=== PATIENT | female | born 2000 | race American Indian/Alaskan Native ===

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

== ENCOUNTER 2023-01-09 23:22 | Emergency (ER) | payer OTHER ==
[~2023-01-09] VITALS: Ht 157.5 cm; Wt 62.0 kg
[~2023-01-09 23:22] MED LIST changes: +MAALOX ADVANCE1 EACH PO; +ONDANSETRON ODT4 MG PO
[2023-01-09] MEDS ORDERED: DOXYCYCLINE HY100 MG PO (23:53)
[2023-01-09] MEDS ORDERED: PREDNISONE20 MG PO (23:53)
[2023-01-09] MEDS ORDERED: BENADRYL ALLERG25 MG PO (23:53)
[2023-01-10 00:11] VITALS: BP 122/72
== END 2023-01-10 00:11 | disposition home or self-care (01) ==
LOC: ED 23:22
DX: S40.861A Insect bite (nonvenomous) of right upper arm, initial encounter (principal); S40.862A Insect bite (nonvenomous) of left upper arm, initial encounter; S90.561A Insect bite (nonvenomous), right ankle, initial encounter; W57.XXXA Bitten or stung by nonvenomous insect and other nonvenomous arthropods, initial encounter; Z88.1 Allergy status to other antibiotic agents
CPT/HCPCS: J7512; Q0163

== ENCOUNTER 2024-05-12 07:31 | Emergency (ER) | payer OTHER ==
[~2024-05-12] VITALS: Ht 157.5 cm; Wt 67.4 kg
[~2024-05-12 07:31] MED LIST changes: +BENADRYL ALLERG25 MG PO; +DOXYCYCLINE HY100 MG PO
--- OUTSIDE RECORDS SUMMARY | 2024-05-12 07:37 | XMS ---
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 - Patient eloped before treatment completed. - Patient with suicidal and/or homicidal ideations eloped. Details: Patient LWBS Elopement at [facility] 12/06/2022 15:14 - Patient eloped with IV in place. - Patient eloped before treatment completed. - Patient with suicidal and/or homicidal ideations eloped. Details: Patient LWBS CRITERIA MET - Group Notification CARE PROVIDERS -[facility] Dentist: Patternmaker Wood [facility] PHONE: [phone] -Siomara- Dentist: Patternmaker Wood [facility] PHONE: [phone] [facility] PHONE: [phone] Loyda has no Care Guidelines for this patient. Ana Cristina VISIT COUNT (12 MO.) 3 [facility] ([facility] TOTAL 4 NOTE: Visits indicate total known visits. ED/UCC VISIT TRACKING (12 MO.) 05/12/2024 07:31 [facility] [place] TYPE: Emergency COMPLAINT: - SKIN PROBLEM 12/12/2023 00:21 [facility] [place] TYPE: Emergency COMPLAINT: - SKIN PROBLEM DIAGNOSES: - Allergy status to other antibiotic agents - Allergy status to penicillin - Depression, unspecified - Diseases of lips - Other mcc (current) drug therapy [facility]12[facility]2023 17:[facility] Emergency DIAGNOSES: - Other muscle spasm - neck pain 07/12/2023 13:39 [facility] [place] TYPE: Emergency COMPLAINT: - NECK PAIN INPATIENT VISIT TRACKING (12 MO.) No inpatient visits to display in this time frame [id number]
[2024-05-12] MEDS ORDERED: DOXYCYCLINE HY100 MG PO (07:53)
[2024-05-12 08:37] VITALS: BP 127/71
== END 2024-05-12 08:00 | disposition home or self-care (01) ==
LOC: ED 07:31
DX: K13.0 Diseases of lips (principal); Z88.0 Allergy status to penicillin; Z88.1 Allergy status to other antibiotic agents; Z88.7 Allergy status to serum and vaccine
CPT/HCPCS: 99283

== ENCOUNTER 2025-03-04 18:13 | Emergency (ER) | payer OTHER ==
[~2025-03-04] VITALS: Ht 157.5 cm; Wt 66.0 kg
--- OUTSIDE RECORDS SUMMARY | 2025-03-04 18:20 | XMS ---
PreManage Notification: GABBY HANNA Security Cardiac Cath Rn Events No recent Security Events currently on file CRITERIA MET - Group Notification CARE PROVIDERS -, [facility] Dentist: Leak Patcher [facility] PHONE: [phone] -Siomara- Dentist: Leak Patcher [facility] [phone] [facility] PHONE: [phone] Loyda has no Care Guidelines for this patient. E.D. VISIT COUNT (12 MO.) 2 ARNULFO [facility] TOTAL 2 NOTE: Visits indicate total known visits. ED/UCC VISIT TRACKING (12 MO.) 03/04/2025 18:14 [facility] [place] TYPE: Emergency COMPLAINT: - LEFT SHOULDER INJURY 05/12/2024 07:31 [facility] [place] TYPE: Emergency COMPLAINT: - SKIN PROBLEM DIAGNOSES: - Allergy status to other antibiotic agents - Allergy status to penicillin - Allergy status to serum and vaccine - Diseases of lips - Rash and other nonspecific skin eruption INPATIENT VISIT TRACKING (12 MO.) No inpatient visits to display in this time frame [id number]
[2025-03-04] MEDS ORDERED: KETOROLAC TROMETHAMINE 30 MG/ML VIAL IM ONE (19:30)
[2025-03-04] MEDS ORDERED: CYCLOBENZAPRINE10 MG PO (20:12)
[2025-03-04] MEDS ORDERED: CELEBREX100 MG PO (20:12)
[2025-03-04] MEDS ORDERED: CYCLOBENZAPRINE HCL 10 MG HOME.PACK PO ONE (20:30)
[2025-03-04] MEDS ORDERED: IBUPROFEN 600 MG TAB PO ONE (20:30)
[2025-03-04 20:37] VITALS: BP 126/65
== END 2025-03-04 20:42 | disposition home or self-care (01) ==
LOC: ED 18:13
DX: S43.402A Unspecified sprain of left shoulder joint, initial encounter (principal); X58.XXXA Exposure to other specified factors, initial encounter; Z88.0 Allergy status to penicillin; Z88.1 Allergy status to other antibiotic agents
CPT/HCPCS: 73030; 99284; A9270